=== PATIENT | female | born 1965 | race Caucasian/White ===

== ENCOUNTER → 2023-10-08 14:35 | Outpatient (REF) | payer OTHER, SELFPAY | LOC: HWRAD 14:35 | PROVIDERS: ATTENDING PHYSICIAN Obstetrics & Gynecology Gynecology; FAMILY PHYSICIAN Internal Medicine | DX: N83.201 Unspecified ovarian cyst, right side (principal) | CPT/HCPCS: 76830; 76856 ==

== ENCOUNTER → 2024-02-19 14:16 | Outpatient (REF) | payer OTHER, SELFPAY | LOC: HWRAD 14:16 | PROVIDERS: ATTENDING PHYSICIAN Nurse Practitioner Adult Health; FAMILY PHYSICIAN Internal Medicine | DX: R10.11 Right upper quadrant pain (principal); R19.4 Change in bowel habit | CPT/HCPCS: 74018 ==

== ENCOUNTER → 2024-03-12 07:13 | Outpatient (REF) | payer OTHER, SELFPAY | LOC: RAD 07:13 | PROVIDERS: ATTENDING PHYSICIAN Nurse Practitioner Adult Health; FAMILY PHYSICIAN Internal Medicine | DX: R10.11 Right upper quadrant pain (principal) | CPT/HCPCS: 76700 ==

== ENCOUNTER → 2024-04-27 10:48 | Outpatient (REF) | payer OTHER, SELFPAY | LOC: PAVMRI 10:48 | PROVIDERS: ATTENDING PHYSICIAN Internal Medicine Gastroenterology; FAMILY PHYSICIAN Internal Medicine | DX: K83.8 Other specified diseases of biliary tract (principal) | CPT/HCPCS: 74183; A9575 ==

== ENCOUNTER 2024-05-31 06:17 | Day surgery (SDC) | payer OTHER, SELFPAY | END 2024-05-31 14:19 | disposition home or self-care (01) | LOC: GI 06:17 | PROVIDERS: ATTENDING PHYSICIAN Internal Medicine Gastroenterology | DX: R10.84 Generalized abdominal pain (principal); R19.7 Diarrhea, unspecified; K44.9 Diaphragmatic hernia without obstruction or gangrene; K31.89 Other diseases of stomach and duodenum; K20.90 Esophagitis, unspecified without bleeding | CPT/HCPCS: 43239; 88305; 88342 ==

== ENCOUNTER → 2024-08-06 09:12 | Outpatient (REF) | payer OTHER, SELFPAY | LOC: RAD 09:12 | PROVIDERS: ATTENDING PHYSICIAN Surgery; FAMILY PHYSICIAN Internal Medicine | DX: K44.9 Diaphragmatic hernia without obstruction or gangrene (principal) | CPT/HCPCS: 74246 ==

== ENCOUNTER 2024-08-11 09:17 | Outpatient (RCR) | payer OTHER, SELFPAY | END 2024-08-11 23:59 | disposition home or self-care (01) | LOC: RPT 09:17 | PROVIDERS: ATTENDING PHYSICIAN Internal Medicine Gastroenterology | DX: M62.89 Other specified disorders of muscle (principal); Z73.6 Limitation of activities due to disability; K58.9 Irritable bowel syndrome, unspecified | CPT/HCPCS: 97112; 97140; 97162; 97530 ==

== ENCOUNTER 2024-09-29 13:11 | Outpatient (RCR) | payer OTHER, SELFPAY | END 2024-09-29 23:59 | disposition home or self-care (01) | LOC: RPT 13:11 | PROVIDERS: ATTENDING PHYSICIAN Internal Medicine Gastroenterology | DX: M62.89 Other specified disorders of muscle (principal); Z73.6 Limitation of activities due to disability; K58.9 Irritable bowel syndrome, unspecified | CPT/HCPCS: 97014; 97112; 97530 ==

== ENCOUNTER 2024-10-13 13:23 | Outpatient (RCR) | payer OTHER, SELFPAY | END 2024-10-13 23:59 | disposition home or self-care (01) | LOC: RPT 13:23 | PROVIDERS: ATTENDING PHYSICIAN Internal Medicine Gastroenterology | DX: M62.89 Other specified disorders of muscle (principal); Z73.6 Limitation of activities due to disability; K58.9 Irritable bowel syndrome, unspecified; R39.15 Urgency of urination | CPT/HCPCS: 97014; 97112; 97530 ==

== ENCOUNTER → 2025-02-07 14:20 | Outpatient (REF) | payer OTHER, SELFPAY | LOC: HWRAD 14:20 | PROVIDERS: ATTENDING PHYSICIAN Obstetrics & Gynecology; FAMILY PHYSICIAN Internal Medicine | DX: N95.0 Postmenopausal bleeding (principal) | CPT/HCPCS: 76830; 76856 ==

== ENCOUNTER → 2025-03-16 07:45 | Outpatient (REF) | payer OTHER, SELFPAY | LOC: HWWDC 07:45 | PROVIDERS: ATTENDING PHYSICIAN Internal Medicine; FAMILY PHYSICIAN Internal Medicine; REFERRING PHYSICIAN Obstetrics & Gynecology | DX: K82.4 Cholesterolosis of gallbladder (principal); Z12.31 Encounter for screening mammogram for malignant neoplasm of breast | CPT/HCPCS: 76700; 77063; 77067 ==